=== PATIENT | female | born 1965 | race American Indian/Alaskan Native ===

== ENCOUNTER 2019-02-27 19:12 | Emergency (ER) | payer OTHER ==
--- NOTE | 2019-02-27 20:49 | Emergency Department Report ---
ED Chest Pain HPI - General Chief Complaint: Chest Pain Stated Complaint: CHEST PAIN Time Seen by Provider: 02/27/19 20:20 Source: EMS, old records reviewed (no previous visit) Mode of arrival: Stretcher Limitations: No Limitations - History of Present Illness Initial Comments: 53-year-old female the past medical history of PCOS currently on spironolactone and chronic back pain currently in physical therapy visits to the hospital with complaints of sudden onset of chest pain while driving. Patient describes the pain feeling like she was punched in the chest. Pain was continuous causing her to pull on the side of the road. Upon EMS arrival her chest pain was decreasing but still persistent. She received aspirin 243 mg and a sublingual nitrogl ycerin with further reduction in her pain. She is currently pain-free. She denies pain radiation and associated symptoms including shortness of breath, nausea, vomiting, or diaphoresis. She complains of intermittent ankle edema without unilateral swelling or calf tenderness. Patient just returned here from [place] via airplane last week and has been flying back and forth over the last month. Last Sunday the patient was seen at a hospital in [place] because she developed shortness of breath, hot flashes, and near syncope while out shopping. She states they performed blood test to rule out a blood clot and informed her to follow up with her sock and stocking ironer as PCP. She also reports that her primary care doctor perform outpatient venous and arterial ultrasounds of her lower extremities early January for intermittent ankle edema. She states she did not have a blood clot but has some mild blockage in the artery of her left leg. Patient reports having a negative outpatient stress test and echo last year performed by [facility]. She does not smoke cigarettes. She takes 2 baby aspirins daily since she received the results of her arterial study. Her brother had a triple bypass in his late 40s. She does not smoke cigarettes. PMD. [place] Severity scale (0 -10): 1 - Related Data Allergies Allergy/AdvReac Type Severity Reaction Status Date / Time tramadol Allergy Hives Verified 02/27/19 19:43 Heart Score - HEART Score History: Slightly suspicious EKG: Non-specific Age: 45-65 Risk factors: 1-2 risk factors Troponin: < normal limit HEART Score: 3 ED Review of Systems ROS: Stated complaint: CHEST PAIN Other details as noted in HPI Comment: All other systems reviewed and negative ED Past Medical Hx - Past Medical History Previous Medical History?: Yes Additional medical history: bronchitis, PCOS - Surgical History Past Surgical History?: Yes Additional Surgical History: spinal fusion, ovarian cyst, tonsilectomy - Social History Smoking Status: Never Smoker Substance Use Type: Alcohol ED Physical Exam - General Limitations: No Limitations - Other Other exam information: General: No limitations, patient is alert in no acute distress Head exam: Atraumatic, normocephalic Eyes exam: Normal appearance ENT: Moist mucous membrane Neck exam: Normal inspection, full range of motion, no meningismus nontender Respiratory exam: Clear to auscultation bilateral, no wheezes, rales, crackles Cardiovascular: Normal rate and rhythm, normal heart sounds, chest wall nontender Abdomen: Soft, nondistended, and nontender, with normal bowel sounds, no rebound, or guarding Extremity: Full range of motion normal inspection no deformity, no calf tenderness related Back: Normal Inspection, full range of motion, no tenderness Neurologic: Alert, oriented x3, cranial nerves intact, no motor or sensory deficit Psychiatric: normal affect, normal mood Skin: Warm, dry, intact ED Course Vital Signs 02/27/19 02/27/19 02/27/19 19:43 21:05 22:00 Temperature 98.1 F 98.3 F Pulse Rate 90 84 74 Respiratory 20 19 15 Rate Blood Pressure 111/66 Blood Pressure 114/64 113/75 [Right] O2 Sat by Pulse 100 98 96 Oximetry 02/27/19 23:00 Temperature Pulse Rate 68 Respiratory 13 Rate Blood Pressure 101/57 Blood Pressure [Right] O2 Sat by Pulse 97 Oximetry - Consultations Consultation #1: 02/27/19 22:11 Case was discussed with Dr. Sadie Taylor, rec f/u tomorrow in office NOE score - Noe Score Age > 65: (0) No Aspirin use within the Past 7 Days: (1) Yes 3 or more CAD Risk Factors: (0) No 2 or more Angina events in past 24 hrs: (0) No Known CAD with more than 50% Stenosis: (0) No Elevated Cardiac Markers: (0) No ST Deviation Greater than 0.5mm: (0) No NOE Score: 1 ED Medical Decision Making - Lab Data Result diagrams: 02/27/19 20:44 02/27/19 20:44 Lab Results 02/27/19 02/27/19 02/27/19 Range/Units 20:44 20:44 20:44 WBC 5.7 (4.5-11.0) K/mm3 RBC 4.39 (3.65-5.03) M/mm3 Hgb 13.2 (10.1-14.3) gm/dl Hct 38.5 (30.3-42.9) % MCV 88 (79-97) fl MCH 30 (28-32) pg MCHC 34 (30-34) % RDW 13.9 (13.2-15.2) % Plt Count 215 (140-440) K/mm3 Lymph % (Auto) 34.0 (13.4-35.0) % [place] % (Auto) 8.7 H (0.0-7.3) % Eos % (Auto) 0.4 (0.0-4.3) % Baso % (Auto) 1.0 (0.0-1.8) % Lymph # 1.9 (1.2-5.4) K/mm3 [place] # 0.5 (0.0-0.8) K/mm3 Eos # 0.0 (0.0-0.4) K/mm3 Baso # 0.1 (0.0-0.1) K/mm3 Seg Neutrophils % 55.9 (40.0-70.0) % Seg Neutrophils # 3.2 (1.8-7.7) K/mm3 PT 12.4 (12.2-14.9) Sec. INR 0.87 (0.87-1.13) APTT 25.9 (24.2-36.6) Sec. D-Dimer 190.77 (0-234) ng/mlDDU Sodium 139 (137-145) mmol/L Potassium 4.0 (3.6-5.0) mmol/L Chloride 100.1 (98-107) mmol/L Carbon Dioxide 24 (22-30) mmol/L Anion Gap 19 mmol/L BUN 15 (7-17) mg/dL Creatinine 1.2 (0.7-1.2) mg/dL Estimated GFR 57 ml/min BUN/Creatinine Ratio 13 % Glucose 101 H (65-100) mg/dL Calcium 8.9 (8.4-10.2) mg/dL Troponin T < 0.010 (0.00-0.029) ng/mL 02/27/19 Range/Units 22:53 WBC (4.5-11.0) K/mm3 RBC (3.65-5.03) M/mm3 Hgb (10.1-14.3) gm/dl Hct (30.3-42.9) % MCV (79-97) fl MCH (28-32) pg MCHC (30-34) % RDW (13.2-15.2) % Plt Count (140-440) K/mm3 Lymph % (Auto) (13.4-35.0) % [place] % (Auto) (0.0-7.3) % Eos % (Auto) (0.0-4.3) % Baso % (Auto) (0.0-1.8) % Lymph # (1.2-5.4) K/mm3 [place] # (0.0-0.8) K/mm3 Eos # (0.0-0.4) K/mm3 Baso # (0.0-0.1) K/mm3 Seg Neutrophils % (40.0-70.0) % Seg Neutrophils # (1.8-7.7) K/mm3 PT (12.2-14.9) Sec. INR (0.87-1.13) APTT (24.2-36.6) Sec. D-Dimer (0-234) ng/mlDDU Sodium (137-145) mmol/L Potassium (3.6-5.0) mmol/L Chloride (98-107) mmol/L Carbon Dioxide (22-30) mmol/L Anion Gap mmol/L BUN (7-17) mg/dL Creatinine (0.7-1.2) mg/dL Estimated GFR ml/min BUN/Creatinine Ratio % Glucose (65-100) mg/dL Calcium (8.4-10.2) mg/dL Troponin T < 0.010 (0.00-0.029) ng/mL - EKG Data -: EKG Interpreted by [facility] EKG shows normal: sinus rhythm, axis (qrs -13), intervals, QRS complexes (qrsd 68), ST-T waves (no stemi) Rate: normal - EKG Data When compared to previous EKG there are: previous EKG unavailable 02/28/19 00:00 repeat ekg, unchanged - Radiology Data Radiology results: report reviewed PROCEDURE: XR CHEST ROUTINE 2V TECHNIQUE: PA and lateral chest radiographs were obtained. HISTORY: Chest Pain COMPARISONS: None. FINDINGS: Heart: Normal. Mediastinum/Vessels: Normal. Lungs/Pleural space: Normal. No effusion. Mild bronchial wall thickening noted on the lateral projection may represent bronchitis. Bony thorax: Single Darling kan extends from approximately T5 or T6-L1. Dextroscoliosis thoracic spine IMPRESSION: No acute infiltrate identified. Mild bronchial wall thickening may suggest bronchitis. Single Darling kan with dextroscoliosis thoracic spine. - Medical Decision Making pain free in ED ekg unchanged trop neg x2 low risk factors for acs reports a neg stress and echo in past 1 year. f/u with cardiology tomorrow/am - Differential Diagnosis VT, unstable angina, atypical chest pain, dissection, pulmonary embolus Critical Care Time: No Critical care attestation.: If time is entered above; I have spent that time in minutes in the direct care of this critically ill patient, excluding procedure time. ED Disposition Clinical Impression: Atypical chest pain Disposition: - TO HOME OR SELFCARE Is pt being admited?: No Does the pt Need Aspirin: No Condition: Stable Instructions: Chest Pain (ED) Additional Instructions: continue aspirin. May take additional Motrin (with food) as needed for pain. Follow-up with the sock and stocking ironer tomorrow (call office today and inform them you were in the ER and cardiolgist wants to see you in the office as soon as possible). Return if symptoms worsen as indicated by your discharge instructions. Referrals: HARRIET CASAREZ MD [Staff Physician] - SHEKHAR (Crop Duster Helper within next 2 days) Time of Disposition: 00:05
[2019-02-27 21:05] LABS: Basophils # (Auto) 0.1 K/mm3 (0.0-0.1); Eosinophils % (Auto) 0.4 % (0.0-4.3); Hematocrit 38.5 % (30.3-42.9); Hemoglobin 13.2 gm/dl (10.1-14.3); Lymphocytes # (Auto) 1.9 K/mm3 (1.2-5.4); Mean Corpuscular HGB Conc 34 % (30-34); Mean Corpuscular Volume 88 fl (79-97); Monocytes # (Auto) 0.5 K/mm3 (0.0-0.8); Monocytes % (Auto) 8.7 % (0.0-7.3); Platelet Count 215 K/mm3 (140-440); Red Blood Count 4.39 M/mm3 (3.65-5.03); Red Cell Distribution Width 13.9 % (13.2-15.2)
[2019-02-27 21:15] LABS: INR 0.87 (0.87-1.13)
[2019-02-27 21:16] LABS: Partial Thromboplastin Time 25.9 Sec. (24.2-36.6)
[2019-02-27 21:26] LABS: BUN/Creatinine Ratio 13; Blood Urea Nitrogen 15 mg/dL (7-17); Calcium 8.9 mg/dL (8.4-10.2); Hemolysis Index 12
--- NOTE | 2019-02-27 23:06 | XRay Report ---
PROCEDURE: XR CHEST ROUTINE 2V TECHNIQUE: PA and lateral chest radiographs were obtained. HISTORY: Chest Pain COMPARISONS: None. FINDINGS: Heart: Normal. Mediastinum/Vessels: Normal. Lungs/Pleural space: Normal. No effusion. Mild bronchial wall thickening noted on the lateral projec tion may represent bronchitis. Bony thorax: Single Dar[place] kan extends from approximately T5 or T6-L1. Dextroscoliosis thoracic s pine IMPRESSION: No acute infiltrate identified. Mild bronchial wall thickening may suggest bronchitis. Single Darling kan with dextroscoliosis thoracic spine. This document is electronically signed by Swapna Herring MD., Feb 27 2019 11:04:34 PM ET
[2019-02-28 00:57] VITALS: BP 112/79
== END 2019-02-28 00:15 | disposition home or self-care (01) ==
LOC: ED 19:12
DX: R07.89 Other chest pain (principal); M54.9 Dorsalgia, unspecified; G89.29 Other chronic pain; Z79.82 Long term (current) use of aspirin; Z88.5 Allergy status to narcotic agent; Z90.89 Acquired absence of other organs
CPT/HCPCS: 36415; 71046; 80048; 84484; 85025; 85379; 85610; 85730; 93005; 93010; 99284